=== PATIENT | female | born 1970 | race Caucasian/White ===

== ENCOUNTER 2023-04-03 08:50 | Emergency (ER) | payer MEDICARE, SELFPAY ==
--- NOTE | ~2023-04-03 | XR_ITS ---
XR chest 2V DATE: 04/03/2023 09:24 INDICATION: Cough and congestion for one week. History of asthma. TECHNIQUE: 2 views COMPARISON: None FINDINGS: Normal heart size. Mild aortic unfolding. No hilar or mediastinal enlargement is detected. No pulmonary infiltrate or consolidation, pleural effusion or pulmonary vascular congestion or pneumo thorax. Mild anterior wedging of a lower thoracic vertebral body and moderately prominent anterior wedging of an upper lumbar vertebral body; these are likely chronic. Plate and screws of proximal right humerus. Osteopenia. IMPRESSION: No active cardiopulmonary disease Probable chronic anterior wedge compression fracture deformities in the thoracolumbar area Reviewed, dictated and finalized at location A. IMPRESSION: No active cardiopulmonary disease Probable chronic anterior wedge compression fracture deformities in the thoraco lumbar area
[2023-04-03 08:58] VITALS: BP 139/93; PULSE 96; RESP 20; TEMP 36.7; O2SAT 98
--- NOTE | 2023-04-03 09:36 | ED.GENADULT ---
HPI - General Adult General Chief complaint: Upper Respiratory Infection Stated complaint: sore throat/drainage/nausea/fever Source: patient Mode of arrival: ambulatory Limitations: no limitations History of Present Illness HPI narrative: Patient presents for evaluation of sick symptoms for last 8 days. Symptoms include sore throat, productive cough of white/yellow sputum, shortness of breath, nausea postnasal drainage, and low-grade fever. No vomiting or diarrhea. Her grandchild had similar symptoms and was diagnosed with rhinovirus. She has been taking robutussin, dextromethorphan, and throat lozenges. She does not smoke. She has an underlying hx of asthma. She recently moved to the area and is attempting to establish care with new primary provider. Related Data Home Medications Medication Instructions Recorded Confirmed Advair Diskus 04/03/23 Eliquis 04/03/23 albuterol 90 mcg/actuation aerosol mcg inhalation 04/03/23 inhaler aripiprazole 04/03/23 atenolol 50 mg tablet 50 mg PO DAILY 04/03/23 04/03/23 atorvastatin 04/03/23 furosemide 40 mg tablet (Lasix) 40 mg PO DAILY 04/03/23 04/03/23 liraglutide 0.6 mg/0.1 mL (18 mg/3 1.8 mg subcut DAILY 04/03/23 04/03/23 mL) subcutaneous pen injector (Victoza 2-Pino) venlafaxine 75 mg capsule,extended 75 mg PO DAILY 04/03/23 04/03/23 release 24 hr Allergies Allergy/AdvReac Type Severity Reaction Status Date / Time No Known Allergies Allergy Verified 04/03/23 09:16 Review of Systems Review of Systems: CONSTITUTIONAL: Reports low grade fever. Denies chills EYES: Denies visual changes, redness, or discharge. ENT: Reports sore throat and postnasal drainage. Denies otalgia. CARDIOVASCULAR: Denies chest pain, palpitations, or edema. RESPIRATORY Reports productive cough of white/yellow sputum with SOB. Reports pleuritic chest pain. GASTROINTESTINAL: Reports nausea. Denies abdominal pain, vomiting, or diarrhea. GENITOURINARY: Denies dysuria or hematuria. SKIN: Denies rash or itching. MUSCULOSKELETAL: Denies back pain, joint pain, or myalgia. NEUROLOGIC: Denies headache, numbness, dizziness, or weakness. PSYCHIATRIC: Denies anxiety or depression. PMFSH Past Medical History Medical History History of DVT (deep vein thrombosis) History of pulmonary embolism Prediabetes Surgical History Surgical History History of History of hysterectomy S/P IVC filter Family History Family History Mother Family history non-contributory Social History Social History Substance use: never Living arrangements: with family Gender identity (if verbalized by the patient): Female Sexual Orientation (if Verbalized by the Patient): Straight or Heterosexual Spiritual care concerns: No Exam Narrative: GENERAL: Well-appearing, well-nourished, and in no acute distress. HEAD: Normocephalic, atraumatic. EYES: PERRLA and EOMI. ENT: Nares clear, no rhinorrhea or epistaxis. Mucous membranes moist. Oropharynx without tonsillar hypertrophy exudate or other lesions. Bilateral TMs pearly gottlieb nonbulging NECK: Supple. No adenopathy or masses. No carotid bruits or JVD CHEST: Cough present on exam. Clear to auscultation. No respiratory distress. No wheezes rales or rhonchi HEART: Regular rate and rhythm. No murmur heard. Normal peripheral pulses. ABDOMEN: Soft, nontender, nondistended, normal active bowel sounds. EXTREMITIES: Normal range of motion. No edema. SKIN: Warm, dry, no rash. NEURO: No focal deficits. Alert and oriented x3. PSYCH: Normal mood and affect. Course Course Emergency Course: This is a 52-year-old female who presented for evaluation of sick symptoms. Strep, COVID, influenza, chest x-r
== END 2023-04-03 10:08 | disposition home or self-care (01) ==
PROVIDERS: Emergency Provider Nurse Practitioner
DX: B34.9 Viral infection, unspecified (principal); Z20.822 Contact with and (suspected) exposure to COVID-19; R73.03 Prediabetes; Z86.711 Personal history of pulmonary embolism; Z86.718 Personal history of other venous thrombosis and embolism
CPT/HCPCS: 71046; 87081; 87426; 87804; 87880; 99213; C9803; G0463